=== PATIENT | female | born 1995 | race Caucasian/White ===

== ENCOUNTER 2017-10-08 18:03 | Emergency (ER) | payer BC ==
[~2017-10-08 18:03] MED LIST: NORE1TAB76 PO
[2017-10-08 18:10] VITALS: BP 128/64
--- NOTE | 2017-10-08 19:08 | PHYS DOC ---
Past History Past Medical History: No Pertinent History Past Surgical History: No Surgical History Alcohol Use: None Drug Use: None Adult General Chief Complaint Chief Complaint: LACERATION/AVULSION HPI HPI Patient is a 22 year old female who presents with complaint of laceration to the scalp. Patient states that this happened shortly prior to arrival. Patient states that she was loading the trunk of her car after shopping at [employer] when the trunk door came down on her head. Patient denies loss of consciousness and is mentating at her baseline. The patient touch the area and saw blood on her hand which caused her immediate concern. Patient denies any significant past medical history. Patient is not up-to-date on her tetanus immunization. Review of Systems Review of Systems Constitutional: Denies fever or chills [] Eyes: Denies change in visual acuity, redness, or eye pain [] HENT: Pain to right side of scalp, laceration[] Respiratory: Denies cough or shortness of breath [] Cardiovascular: Denies chest pain or edema[] GI: Denies abdominal pain, nausea, vomiting, bloody stools or diarrhea [] : Denies dysuria or hematuria [] Musculoskeletal: Denies back pain or joint pain [] Integument: Denies rash or skin lesions [] Neurologic: Denies headache, focal weakness or sensory changes [] All other systems were reviewed and found to be within normal limits, except as documented in this note. Allergies Allergies Allergies Coded Allergies Type Severity Reaction Last Updated Verified Penicillins Allergy Unknown 02/11/16 Yes Physical Exam Physical Exam Constitutional: Alert, afebrile, no acute distress. [] HENT: Normocephalic, 2 cm linear laceration along right parietal scalp, bilateral external ears normal, oropharynx moist, no oral exudates, nose normal. [] Eyes: PERRLA, EOMI, conjunctiva normal, no discharge. [] Neck: Normal range of motion, no tenderness, supple, no stridor. [] Cardiovascular:Heart rate regular rhythm, no murmur [] Lungs & Thorax: Bilateral breath sounds clear to auscultation [] Abdomen: Bowel sounds normal, soft, no tenderness, no masses, no pulsatile masses. [] Skin: Warm, dry, no erythema, no rash. [] Back: No tenderness, no CVA tenderness. [] Extremities: No tenderness, no cyanosis, no clubbing, ROM intact, no edema. [] Neurologic: Alert and oriented X 3, normal motor function, normal sensory function, no focal deficits noted. [] Current Patient Data Vital Signs Vital Signs Date Time Temp Pulse Resp B/P (MAP) Pulse Ox O2 Delivery O2 Flow Rate FiO2 10/08/17 18:10 98.0 92 20 100 Room Air Lab Results Not performed EKG EKG Not performed[] Radiology/Procedures Radiology/Procedures Indication: Right parietal scalp laceration Procedure: The patient was placed in the appropriate position. The area was then cleansed with normal saline. The laceration was closed using 2 abeba. Total repaired wound length: 2 cm. The patient tolerated the procedure without difficulty. Complications: None.[] Course & Med Decision Making Course & Med Decision Making Pertinent Labs and Imaging studies reviewed. (See chart for details) Patient's GCS is 15. Patient experienced no loss of consciousness and is displaying no concussion symptoms. Thus CT imaging of the head was deferred at today's visit. Patient's laceration was repaired as outlined in the procedure note. Advise follow-up in 5 days with primary doctor for reevaluation and removal of scalp abeba. Advised return emergency department for any worsening symptoms. Patient voiced understanding and in agreement with treatment plan. Dragon Disclaimer Dragon Disclaimer This electronic medical record was generated, in whole or in part, using a voice recognition dictation system. Departure Departure: Impression: Primary Impression: Closed head injury Additional Impression: Scalp laceration Disposition: 01 HOME, SELF-CARE Condition: IMPROVED Referrals: PCP,NO (PCP) Patient Instructions: Head Injury, Adult, Laceration Care, Adult, Staple Care and Removal Additional Instructions: Follow-up with your primary doctor in 5 days for removal of your abeba. Return to the emergency department for any worsening symptoms. Problem Qualifiers Primary Impression: Closed head injury Encounter type: initial encounter Qualified Codes: S09.90XA - Unspecified injury of head, initial encounter Additional Impression: Scalp laceration Encounter type: initial encounter Qualified Codes: S01.01XA - Laceration without foreign body of scalp, initial encounter VINNIE MAYORGA MD Oct 08, 2017 19:08
[2017-10-08] MEDS ORDERED: DIPHTH,PERTUSS(ACELL),TET TOX 0.5 ML DISP.SYRIN. VAX IM ONE (19:30)
== END 2017-10-08 19:20 | disposition home or self-care (01) ==
LOC: ER 18:03
DX: S01.01XA Laceration without foreign body of scalp, initial encounter (principal); Z88.0 Allergy status to penicillin; W22.8XXA Striking against or struck by other objects, initial encounter; Y93.89 Activity, other specified; Y99.8 Other external cause status; Y92.89 Other specified places as the place of occurrence of the external cause
CPT/HCPCS: 12001; 90471; 90715; 99283-25

== ENCOUNTER → 2017-10-13 | Outpatient (CLI) | payer BC ==
[2017-10-08 18:10] VITALS: BP 128/64
--- NOTE | 2017-10-13 17:52 | RAD ---
CT HEAD WO CONTRAST History: Headache, dizziness, injury on Monday to the right side of the head Comparison: None. Technique: Noncontrast CT imaging was performed of the head. Exposure: One or more of the following individualized dose reduction techniques were utilized for this examination: 1. Automated exposure control 2. Adjustment of the mA and/or kV according to patient size 3. Use of iterative reconstruction technique. Findings: No acute extra-axial or parenchymal hemorrhage is identified. There is no significant intra-axial mass effect, midline shift, or extra-axial fluid collection. The moseley-white differentiation of the major vascular territories is preserved. The ventricles, sulci, and cisterns are within normal limits in size and configuration. The mastoid air cells and the visualized paranasal sinuses are aerated. No acute calvarial abnormality is identified. Impression: 1. No acute intracranial abnormality is identified. Electronically signed by: Sameer Corral MD (10/13/2017 5:49 PM) [facility]
== END | disposition home or self-care (01) ==
LOC: CT 17:33
PROVIDERS: ATTEND Physician Assistant
DX: S09.8XXD Other specified injuries of head, subsequent encounter (principal); X58.XXXD Exposure to other specified factors, subsequent encounter
CPT/HCPCS: 70450

== ENCOUNTER 2018-02-17 19:41 | Emergency (ER) | payer BC ==
[~2018-02-17] VITALS: Ht 152.4 cm; Wt 106.6 kg
--- NOTE | 2018-02-17 20:34 | PHYS DOC ---
Past History Past Medical History: No Pertinent History Past Surgical History: Tonsillectomy Alcohol Use: Occasionally Drug Use: None Adult General Chief Complaint Chief Complaint: LACERATION/AVULSION HPI HPI 23-year-old female presents with laceration of the right plantar aspect of the foot. Patient was walking around in the neighborhood yard and stepped on a piece of glass which cut a 0.5 cm area on the bottom of her foot. She presents to make sure there is no foreign body in her foot. The bleeding is controlled. The skin is well approximated. She has no other complaints. Her last tetanus shot was less than one year ago. Review of Systems Review of Systems Constitutional: Denies fever or chills [] Eyes: Denies change in visual acuity, redness, or eye pain [] HENT: Denies nasal congestion or sore throat [] Respiratory: Denies cough or shortness of breath [] Cardiovascular: No additional information not addressed in HPI [] GI: Denies abdominal pain, nausea, vomiting, bloody stools or diarrhea [] : Denies dysuria or hematuria [] Musculoskeletal: Denies back pain or joint pain [] Integument: Laceration on the plantar side of the right foot[] Neurologic: Denies headache, focal weakness or sensory changes [] Endocrine: Denies polyuria or polydipsia [] All other systems were reviewed and found to be within normal limits, except as documented in this note. Allergies Allergies Allergies Coded Allergies Type Severity Reaction Last Updated Verified Penicillins Allergy Intermediate 02/17/18 Yes ciprofloxacin Allergy Intermediate 02/17/18 Yes Physical Exam Physical Exam Constitutional: Well developed, well nourished, no acute distress, non-toxic appearance. [] HENT: Normocephalic, atraumatic, bilateral external ears normal, oropharynx moist, no oral exudates, nose normal. [] Eyes: PERRLA, EOMI, conjunctiva normal, no discharge. [] Neck: Normal range of motion, no tenderness, supple, no stridor. [] Cardiovascular:Heart rate regular rhythm, no murmur [] Lungs & Thorax: Bilateral breath sounds clear to auscultation [] Abdomen: Bowel sounds normal, soft, no tenderness, no masses, no pulsatile masses. [] Skin: One half centimeter superficial laceration of the right plantar foot. No active bleeding, skin well approximated.[] Back: No tenderness, no CVA tenderness. [] Extremities: No tenderness, no cyanosis, no clubbing, ROM intact, no edema. [] Neurologic: Alert and oriented X 3, normal motor function, normal sensory function, no focal deficits noted. [] Psychologic: Affect normal, judgement normal, mood normal. [] Current Patient Data Vital Signs Vital Signs Date Time Temp Pulse Resp B/P (MAP) Pulse Ox O2 Delivery O2 Flow Rate FiO2 02/17/18 19:50 98.8 91 16 99 Room Air EKG EKG [] Radiology/Procedures Radiology/Procedures [] Course & Med Decision Making Course & Med Decision Making Pertinent Labs and Imaging studies reviewed. (See chart for details) The patient's x-rays negative for foreign body. Given the size of the laceration and the superficial nature, I do not believe sutures are warranted. I will treat her prophylactically with Keflex for 7 days. [] Dragon Disclaimer Dragon Disclaimer This electronic medical record was generated, in whole or in part, using a voice recognition dictation system. Departure Departure: Referrals: PCP,JAYASHREE (PCP) MYRA LEMUS DO Feb 17, 2018 20:34
[2018-02-17 20:51] VITALS: BP 115/73
[2018-02-17] MEDS ORDERED: DOXY100C2 PO (20:55)
--- NOTE | 2018-02-17 23:12 | RAD ---
Three-view right foot radiographs 02/17/2018 CLINICAL HISTORY: Laceration of the right heel with glass earlier today. AP, lateral and oblique digital radiographs of the right foot were obtained. No fracture or dislocation is seen. No radiopaque foreign body is noted. IMPRESSION: No fracture or radiopaque foreign body is seen. Electronically signed by: Godfrey Soria MD (02/17/2018 11:09 PM) [facility]
== END 2018-02-17 20:58 | disposition home or self-care (01) ==
LOC: ER 19:41
DX: S91.311A Laceration without foreign body, right foot, initial encounter (principal); Z88.0 Allergy status to penicillin; Z88.1 Allergy status to other antibiotic agents; W25.XXXA Contact with sharp glass, initial encounter; Y93.01 Activity, walking, marching and hiking; Y99.8 Other external cause status; Y92.89 Other specified places as the place of occurrence of the external cause
CPT/HCPCS: 73630; 99284

== ENCOUNTER 2021-08-03 20:13 | Emergency (ER) | payer BC, OTHER ==
[~2021-08-03] VITALS: Ht 152.4 cm; Wt 104.0 kg
[~2021-08-03 20:13] MED LIST changes: +DOXY100C3 PO; +NORE-108 PO; -NORE1TAB76 PO
--- NOTE | 2021-08-03 21:01 | RAD ---
Study: XR EXAM OF ANKLE_LEFT 3V Indication: Fall. Pain. Comparison: None. Findings: No acute fracture identified at the ankle or involving the partially imaged foot. Alignment is within normal limits. Unremarkable talar dome. Maintained joint spaces. Impression: No acute fracture. Considering the absence of weightbearing alignment is within normal limits. Electronically signed by: CHRISTINE DUBOSE MD (08/03/2021 8:58 PM) [facility] [place] [place]
--- NOTE | 2021-08-03 21:46 | PHYS DOC ---
Past History Past Medical History: No Pertinent History Past Surgical History: Tonsillectomy Alcohol Use: Occasionally Drug Use: None General Adult EDM: Chief Complaint: ANKLE PROBLEM HPI: HPI: 26-year-old female presents with left ankle pain. The patient was returning from her lunch break at work she stepped into a pothole and twisted her left ankle. She tried to walk on it but was unable. She decided she should come in for evaluation. It is swollen and tender to palpation. She denies any numbness, tingling, or altered sensation. Review of Systems: Review of Systems: Constitutional: Denies fever or chills Eyes: Denies change in visual acuity HENT: Denies nasal congestion or sore throat Respiratory: Denies cough or shortness of breath Cardiovascular: Denies chest pain or edema GI: Denies abdominal pain, nausea, vomiting, bloody stools or diarrhea : Denies dysuria Musculoskeletal: Left lateral ankle pain Integument: Denies rash Neurologic: Denies headache, focal weakness or sensory changes Endocrine: Denies polyuria or polydipsia Lymphatic: Denies swollen glands Psychiatric: Denies depression or anxiety Allergies: Allergies: Allergies Coded Allergies Type Severity Reaction Last Updated Verified Penicillins Allergy Intermediate 02/17/18 Yes ciprofloxacin Allergy Intermediate 02/17/18 Yes Physical Exam: PE: Constitutional: Well developed, well nourished, morbidly obese, no acute distress, non-toxic appearance. [] HENT: Normocephalic, atraumatic, bilateral external ears normal, oropharynx moist, no oral exudates, nose normal. [] Eyes: PERRLA, EOMI, conjunctiva normal, no discharge. [] Neck: Normal range of motion, no tenderness, supple, no stridor. [] Cardiovascular:Heart rate regular rhythm, no murmur [] Lungs & Thorax: Bilateral breath sounds clear to auscultation [] Abdomen: Bowel sounds normal, soft, no tenderness, no masses, no pulsatile masses. [] Skin: Warm, dry, no erythema, no rash. [] Back: No tenderness, no CVA tenderness. [] Extremities: Tenderness left lateral ankle, swelling, no ecchymosis or obvious deformity. [] Neurologic: Alert and oriented X 3, normal motor function, normal sensory function, no focal deficits noted. [] Psychologic: Affect normal, judgement normal, mood normal. [] EKG: EKG: [] Radiology/Procedures: Radiology/Procedures: [] Impressions: Study: XR EXAM OF ANKLE_LEFT 3V Indication: Fall. Pain. Comparison: None. Findings: No acute fracture identified at the ankle or involving the partially imaged foot. Alignment is within normal limits. Unremarkable talar dome. Maintained joint spaces. Impression: No acute fracture. Considering the absence of weightbearing alignment is within normal limits. Electronically signed by: CHRISTINE DUBOSE MD (08/03/2021 8:58 PM) [facility] DICTATED AND SIGNED BY: CHRISTINE DUBOSE MD DATE: 08/03/212056 CC: EMERGENCY,DEPARTMENT; ZAYNAB PHAN; PCP,NO ~MTH0 0 Heart Score: C/O Chest Pain: N/A Risk Factors: Risk Factors: DM, Current or recent (<one month) smoker, HTN, HLP, family history of CAD, obesity. Risk Scores: Score 0 - 3: 2.5% MACE over next 6 weeks - Discharge Home Score 4 - 6: 20.3% MACE over next 6 weeks - Admit for Clinical Observation Score 7 - 10: 72.7% MACE over next 6 weeks - Early Invasive Strategies Course & Med Decision Making: Course & Med Decision Making Pertinent Labs and Imaging studies reviewed. (See chart for details) The patient's x-ray is negative for fracture. She appears to have a sprained ankle. I will place her in a stirrup splint. She will borrow some crutches from a family member. She is stable for discharge at this time. [] Estela Disclaimer: Estela Disclaimer: This electronic medical record was generated, in whole or in part, using a voice recognition dictation system. Departure Departure: Impression: Primary Impression: Left ankle sprain Disposition: HOME / SELF CARE / HOMELESS Condition: STABLE Referrals: PCP,NO (PCP) Patient Instructions: Ankle Sprain, Acute, with Phase I Re[facility] MYRA LEMUS DO Aug 03, 2021 21:46
[2021-08-03 22:25] VITALS: BP 115/73
== END 2021-08-03 22:24 | disposition home or self-care (01) ==
LOC: ER 20:13
DX: S93.402A Sprain of unspecified ligament of left ankle, initial encounter (principal); Z88.0 Allergy status to penicillin; Z88.1 Allergy status to other antibiotic agents; X50.9XXA Other and unspecified overexertion or strenuous movements or postures, initial encounter; Y93.89 Activity, other specified; Y92.89 Other specified places as the place of occurrence of the external cause; Y99.8 Other external cause status
CPT/HCPCS: 73610; 99283